=== PATIENT | male | born 1995 | race Two or more races ===

== ENCOUNTER 2016-07-06 06:31 | Emergency (ER) | payer SELFPAY ==
[2016-07-06] MEDS ORDERED: diPHENhydraMINE IV* 50 MG in NS 0.9% 50 ML* 50 ML IVPB ONE (06:39)
[2016-07-06] MEDS ORDERED: Haloperidol INJ IV/IM* 5 MG/ML AMP IM ONE (06:39)
[2016-07-06] MEDS: LORazepam INJ* 2 MG/ML 1 ML VIAL IM ONE ×2 (06:45→07:28)
[2016-07-06] MEDS ORDERED: diPHENhydraMINE IV* 50 MG/ML 1 ml VIAL (BENADRYL) IM ONE (06:52)
[2016-07-06] MEDS ORDERED: LORazepam INJ* 2 MG/ML 1 ML VIAL ONE (07:15)
[2016-07-06 07:45] LABS: Urine Bilirubin Negative (Negative); Urine Glucose Negative (Negative); Urine Nitrite Negative (Negative)
[2016-07-06 07:54] LABS: Benzodiazepine Urine Screen None Detected (None Detect)
[2016-07-06 11:26] VITALS: BP 121/56
[2016-07-06 11:50] LABS: Hematocrit 52 % (42-52); Hemoglobin 17.5 g/dl (14.0-18.0); Mean Corpuscular HGB Conc 33 g/dl (31-36); Mean Corpuscular Hemoglobin 30 pg (27-31); Mean Corpuscular Volume 90 fL (80-94); Mean Platelet Volume 8 um3 (7.4-10.4); Red Blood Count 5.82 10^6/ul (4.0-5.4); Red Cell Distribution Width 14 % (10.5-15); White Blood Count 8.2 10^3/ul (3.5-10.8)
[2016-07-06 12:05] LABS: ALT 23 U/L (7-52); AST 38 U/L (13-39); Alkaline Phosphatase 62 U/L (34-104); Anion Gap 7 mmol/L (2-11); BUN/Creatinine Ratio 6.7 (8-20); Blood Urea Nitrogen 7 mg/dL (6-24); CO2 Carbon Dioxide 28 mmol/L (22-32); Calcium 9.5 mg/dL (8.6-10.3); Chloride 104 mmol/L (101-111); EGFR African American 115.9 (>60); EGFR Non-African American 90.2 (>60); Glucose 93 mg/dL (70-100); Potassium 4.3 mmol/L (3.5-5.0); Sodium 139 mmol/L (133-145)
[2016-07-06 12:18] LABS: Acetaminophen < 15 mcg/mL; Alcohol 150 mg/dL (<10); Salicylate < 2.50 mg/dL (<30)
[2016-07-06 12:29] LABS: TSH (Thyroid Stimulating Horm) 0.98 mcIU/mL (0.34-5.60)
--- NOTE | 2016-07-06 17:17 | ED ---
I, Sang Jean Baptiste, scribed for Edwar Ledbetter MD on 07/06/16 at 0814 . Progress - Progress Note Progress Note: Patient signed out by Dr. Mejia at shift change. He was brought to the ED by law enforcement for 941 due to his agitated behavior. He is now resting comfortably. He is in four-point restraints. He was given B52 and we are awaiting test results. The patient was evaluated by Dr. Kong, who determined that the patient can be discharged home at this time. Re-Evaluation - Re-Evaluation First Eval Re-Evaluation Time: 08:44 Comment: Sleeping comfortably. Course/Dx - Diagnoses Provider Diagnoses: Substance abuse Discharge - Discharge Plan Condition: Stable Disposition: HOME Patient Education Materials: Abuse of Alcohol (ED), Cannabis Abuse (ED) Referrals: [facility], [Primary Care Provider] - The documentation as recorded by the Markel rice Billy accurately reflects the service I personally performed and the decisions made by me, Edwar Ledbetter MD.
--- NOTE | 2016-07-06 20:29 | ED ---
Edmundo Martinez Alok, scribed for Francisco Javier Mejia MD on 07/06/16 at 0700 . Psychiatric Complaint - HPI Summary HPI Summary: 21M presents to the ED brought by police for mental delusions and threatening behavior. Pt was picked up at [place] and is a student at . Police report pt was calm at first before suddenly becoming aggravated and threatening others. Pt also presents with dilated pupils. - History Of Current Complaint Chief Complaint: EDSubstanceAbuse Time Seen by Provider: 07/06/16 06:38 Hx Obtained From: Other: - Police Onset/Duration: Lasting Hours, Still Present Timing: Constant Severity Initially: Moderate Severity Currently: Moderate Character: Anxious Associated Signs And Symptoms: Positive: Hostile PMH/Surg Hx/FS Hx/Imm Hx Infectious Disease History: No Infectious Disease History: Denies: Traveled Outside the in Last 30 Days - Family History Known Family History: Positive: Unknown - unobtainable due to hostile behavior - Social History Occupation: Student Review of Systems Negative: Fever, Chills Positive: Other - Pupils dialated . Negative: Erythema Negative: Sore Throat Negative: Chest Pain Negative: Shortness Of Breath, Cough Negative: Abdominal Pain, Diarrhea, Nausea Negative: dysuria, hematuria Negative: Myalgia, Edema Negative: Rash Neurological: Other - Negative: Dizziness All Other Systems Reviewed And Are Negative: Yes Physical Exam - Summary Physical Exam Summary: Constitutional: Well-developed, Well-nourished, Alert. (-) Distressed Skin: Warm, Dry HENT: Normocephalic; Atraumatic Eyes: 8 mm pupils Neck: Musculoskeletal ROM normal neck. (-) JVD, (-) Stridor, (-) Tracheal deviation Cardio: Rhythm regular, rate normal, Heart sounds normal; Intact distal pulses; The pedal pulses are 2+ and symmetric. Radial pulses are 2+ and symmetric. (-) Murmur Pulmonary/Chest wall: Effort normal. (-) Respiratory distress, (-) Wheezes, (-) Rales Abd: Soft, (-) Tenderness, (-) Distension, (-) Guarding, (-) Rebound Musculoskeletal: (-) Edema Lymph: (-) Cervical adenopathy Neuro: Alert, Oriented x3 Psych: Mood and affect Normal Triage Information Reviewed: Yes Vital Signs On Initial Exam: Initial Vitals Temp Pulse Resp BP Pulse Ox 98.7 F 81 18 152/91 98 07/06/16 06:36 07/06/16 06:36 07/06/16 06:36 07/06/16 06:36 07/06/16 06:36 Vital Signs Reviewed: Yes Diagnostics - Vital Signs Vital Signs Temp Pulse Resp BP Pulse Ox 07/06/16 06:45 16 07/06/16 06:36 98.7 F 81 18 152/91 98 - Laboratory Lab Results: Lab Results 07/06/16 07/06/16 07/06/16 Range/Units 07:25 07:25 11:35 WBC 8.2 (3.5-10.8) 10^3/ul RBC 5.82 H (4.0-5.4) 10^6/ul Hgb 17.5 (14.0-18.0) g/dl Hct 52 (42-52) % MCV 90 (80-94) fL MCH 30 (27-31) pg MCHC 33 (31-36) g/dl RDW 14 (10.5-15) % Plt Count 205 (150-450) 10^3/ul MPV 8 (7.4-10.4) um3 Neut % (Auto) 64.6 (38-83) % Lymph % (Auto) 27.6 (25-47) % [place] % (Auto) 5.5 (1-9) % Eos % (Auto) 1.6 (0-6) % Baso % (Auto) 0.7 (0-2) % Absolute Neuts (auto) 5.3 (1.5-7.7) 10^3/ul Absolute Lymphs (auto) 2.3 (1.0-4.8) 10^3/ul Absolute Monos (auto) 0.5 (0-0.8) 10^3/ul Absolute Eos (auto) 0.1 (0-0.6) 10^3/ul Absolute Basos (auto) 0.1 (0-0.2) 10^3/ul Absolute Nucleated RBC 0.01 10^3/ul Nucleated RBC % 0.2 Sodium (133-145) mmol/L Potassium (3.5-5.0) mmol/L Chloride (101-111) mmol/L Carbon Dioxide (22-32) mmol/L Anion Gap (2-11) mmol/L BUN (6-24) mg/dL Creatinine (0.67-1.17) mg/dL Est GFR ( Amer) (>60) Est GFR (Non-Af Amer) (>60) BUN/Creatinine Ratio (8-20) Glucose (70-100) mg/dL Calcium (8.6-10.3) mg/dL Total Bilirubin (0.2-1.0) mg/dL AST (13-39) U/L ALT (7-52) U/L Alkaline Phosphatase (34-104) U/L Total Protein (6.4-8.9) g/dL Albumin (3.2-5.2) g/dL Globulin (2-4) g/dL Albumin/Globulin Ratio (1-3) TSH (0.34-5.60) mcIU/mL Urine Color Straw Urine Appearance Clear Urine pH 6.0 (5-9) Ur Specific [place] 1.002 L (1.010-1.030) Urine Protein Negative (Negative) Urine Ketones Negative (Negative) Urine Blood Negative (Negative) Urine Nitrate Negative (Negative) Urine Bilirubin Negative (Negative) Urine Urobilinogen Negative (Negative) Ur Leukocyte Esterase Negative (Negative) Urine Glucose Negative (Negative) Salicylates (<30) mg/dL Urine Opiates Screen None detected (None Detect) Acetaminophen mcg/mL Ur Barbiturates Screen None detected (None Detect) Ur Phencyclidine Scrn None detected (None Detect) Ur Amphetamines Screen None detected (None Detect) U Benzodiazepines Scrn None detected (None Detect) Urine Cocaine Screen None detected (None Detect) U Cannabinoids Screen Presumptive positive H (None Detect) Serum Alcohol (<10) mg/dL 07/06/16 Range/Units 11:35 WBC (3.5-10.8) 10^3/ul RBC (4.0-5.4) 10^6/ul Hgb (14.0-18.0) g/dl Hct (42-52) % MCV (80-94) fL MCH (27-31) pg MCHC (31-36) g/dl RDW (10.5-15) % Plt Count (150-450) 10^3/ul MPV (7.4-10.4) um3 Neut % (Auto) (38-83) % Lymph % (Auto) (25-47) % [place] % (Auto) (1-9) % Eos % (Auto) (0-6) % Baso % (Auto) (0-2) % Absolute Neuts (auto) (1.5-7.7) 10^3/ul Absolute Lymphs (auto) (1.0-4.8) 10^3/ul Absolute Monos (auto) (0-0.8) 10^3/ul Absolute Eos (auto) (0-0.6) 10^3/ul Absolute Basos (auto) (0-0.2) 10^3/ul Absolute Nucleated RBC 10^3/ul Nucleated RBC % Sodium 139 (133-145) mmol/L Potassium 4.3 (3.5-5.0) mmol/L Chloride 104 (101-111) mmol/L Carbon Dioxide 28 (22-32) mmol/L Anion Gap 7 (2-11) mmol/L BUN 7 (6-24) mg/dL Creatinine 1.04 (0.67-1.17) mg/dL Est GFR ( Amer) 115.9 (>60) Est GFR (Non-Af Amer) 90.2 (>60) BUN/Creatinine Ratio 6.7 L (8-20) Glucose 93 (70-100) mg/dL Calcium 9.5 (8.6-10.3) mg/dL Total Bilirubin 0.70 (0.2-1.0) mg/dL AST 38 (13-39) U/L ALT 23 (7-52) U/L Alkaline Phosphatase 62 (34-104) U/L Total Protein 8.0 (6.4-8.9) g/dL Albumin 5.0 (3.2-5.2) g/dL Globulin 3.0 (2-4) g/dL Albumin/Globulin Ratio 1.7 (1-3) TSH 0.98 (0.34-5.60) mcIU/mL Urine Color Urine Appearance Urine pH (5-9) Ur Specific [place] (1.010-1.030) Urine Protein (Negative) Urine Ketones (Negative) Urine Blood (Negative) Urine Nitrate (Negative) Urine Bilirubin (Negative) Urine Urobilinogen (Negative) Ur Leukocyte Esterase (Negative) Urine Glucose (Negative) Salicylates < 2.50 (<30) mg/dL Urine Opiates Screen (None Detect) Acetaminophen < 15 mcg/mL Ur Barbiturates Screen (None Detect) Ur Phencyclidine Scrn (None Detect) Ur Amphetamines Screen (None Detect) U Benzodiazepines Scrn (None Detect) Urine Cocaine Screen (None Detect) U Cannabinoids Screen (None Detect) Serum Alcohol 150 H (<10) mg/dL Result Diagrams: 07/06/16 11:35 07/06/16 11:35 Lab Statement: Any lab studies that have been ordered have been reviewed, and results considered in the medical decision making process. Course/Dx - Differential Dx/Clinical Impression Provider Diagnosis: Substance abuse, Nondependent alcohol abuse, episodic drinking behavior Discharge - Discharge Plan Condition: Stable Disposition: HOME Patient Education Materials: Abuse of Alcohol (ED), Cannabis Abuse (ED) Referrals: [facility], [Primary Care Provider] - The documentation as recorded by the Edmundo rice Alok accurately reflects the service I personally performed and the decisions made by , Francisco Javier Mejia MD.
== END 2016-07-06 16:25 | disposition home or self-care (01) ==
LOC: ED 06:31
DX: F19.10 Other psychoactive substance abuse, uncomplicated (principal); F10.129 Alcohol abuse with intoxication, unspecified; Y90.6 Blood alcohol level of 120-199 mg/100 ml
CPT/HCPCS: 36415; 80053; 80307; 80320; 80329; 81003; 84443; 85025; 96372; 99281; G0480; J1200; J1630; J2060